=== PATIENT | male | born 1975 | race American Indian/Alaskan Native ===

== ENCOUNTER 2016-11-23 20:35 | Emergency (ER) | payer SELFPAY ==
[2016-11-23] MEDS ORDERED: TYLENOL PO ONE (20:59)
[2016-11-23 21:10] LABS: Hematocrit 46.3 % (35.5-45.6); Hemoglobin 15.6 gm/dl (11.8-15.2); Mean Corpuscular HGB Conc 34 % (32-34); Mean Corpuscular Hemoglobin 29 pg (28-32); Mean Corpuscular Volume 86 fl (84-94); Platelet Count 247 K/mm3 (140-440); Red Blood Count 5.35 M/mm3 (3.65-5.03); Red Cell Distribution Width 13.7 % (13.2-15.2)
[2016-11-23 21:23] LABS: Anion Gap 19 mmol/L; BUN/Creatinine Ratio 10; Blood Urea Nitrogen 11 mg/dL (9-20); Calcium 8.9 mg/dL (8.4-10.2); Carbon Dioxide 26 mmol/L (22-30); Chloride 92.9 mmol/L (98-107); Glucose 138 mg/dL (75-100); Potassium 3.9 mmol/L (3.6-5.0); Sodium 134 mmol/L (137-145)
[2016-11-24 02:43] LABS: Bilirubin,Urine NEG (Negative); Blood,Urine NEG (Negative); Ketones,Urine NEG (Negative); Leukocyte Esterase,Urine SM (Negative); Mucus,Urine 1+ /HPF; Nitrite,Urine NEG (Negative); Protein,Urine <15 mg/dL mg/dL (Negative); Urobilinogen,Urine < 2.0 mg/dL (<2.0)
--- NOTE | 2016-11-24 02:50 | Emergency Department Report ---
- General Chief Complaint: Fever Stated Complaint: FEVER Time Seen by Provider: 11/24/16 02:48 Source: patient, family Mode of arrival: Ambulatory Limitations: No Limitations - History of Present Illness Initial Comments: Patient reports that he has flulike symptoms. He said he woke up and having sweats, sore throat lower back pain, headache. Denies any nausea vomiting or diarrhea. Denies any abdominal pain. Denies any urinary burning frequency or urgency. Reported fever and chills. Pain is 310 to head and throat. Denies any Gen. in. Denies any contact with anyone with similar symptoms. No over-the -counter medication taken prior to coming to the emergency room. Denies any medical or surgical history. Denies any cough or shortness of breath. Denies any chest pain, nasal congestion or runny nose. MD Complaint: fever, sore throat, other (Headache) -: This morning Severity: mild Severity scale (0 -10): 3 Quality: aching Improves With: rest Worsens With: other (eating) Context: other (none known) Associated Symptoms: fever, chills, myalgias, diaphoresis, headache, sore throat. denies: rhinorrhea, nasal congestion, stiff neck, cough, chest pain, shortness of breath, abdominal pain, nausea, vomiting, diarrhea, dysuria, rash, confusion, weight loss, epistaxis, hoarseness, ear pain Treatments Prior to Arrival: Ibuprofen - Related Data Previous Rx's Medication Instructions Recorded Last Taken Type Cyclobenzaprine [Flexeril 10mg] 10 mg PO Q8H PRN #21 tablet 03/07/14 Unknown Rx HYDROcodone/APAP 10-325 [[place] 1 each PO Q6HR PRN #20 tablet 03/07/14 Unknown Rx 10-325 mg TAB] HYDROcodone/APAP 5-325 [[place] 1 each PO Q6HR PRN #12 tablet 11/25/14 Unknown Rx 5/325] Ibuprofen [Motrin 800 MG tab] 800 mg PO Q8HR PRN #30 tablet 11/25/14 Unknown Rx Levofloxacin [Levaquin TAB] 750 mg PO QDAY #10 tablet 11/25/14 Unknown Rx Amoxicillin/K Clav Tab [Augmentin 1 tab PO Q12HR #20 tab 11/24/16 Unknown Rx 875 mg] Ibuprofen [Motrin] 800 mg PO Q8HR PRN #15 tablet 11/24/16 Unknown Rx Allergies Allergy/AdvReac Type Severity Reaction Status Date / Time No Known Allergies Allergy Unverified 03/07/14 00:03 ED Review of Systems ROS: Stated complaint: FEVER Other details as noted in HPI Comment: All other systems reviewed and negative Constitutional: chills, fever ENT: throat pain. denies: congestion Respiratory: no symptoms reported Cardiovascular: denies: chest pain, palpitations, dyspnea on exertion, edema, syncope, paroxysmal nocturnal dyspnea Gastrointestinal: denies: abdominal pain, nausea, vomiting, diarrhea Genitourinary: denies: urgency, dysuria, frequency, hematuria, discharge, testicular pain, testicular mass Musculoskeletal: back pain, myalgia. denies: joint swelling, arthralgia Skin: denies: rash Neurological: headache. denies: weakness, numbness, paresthesias, confusion, abnormal gait, vertigo ED Past Medical Hx - Past Medical History Previous Medical History?: No - Surgical History Past Surgical History?: No - Family History Family history: no significant - Social History Smoking Status: Never Smoker Substance Use Type: Alcohol Other Social History: Single - Medications Home Medications: Home Medications Medication Instructions Recorded Confirmed Last Taken Type Cyclobenzaprine [Flexeril 10mg] 10 mg PO Q8H PRN #21 tablet 03/07/14 Unknown Rx HYDROcodone/APAP 10-325 [[place] 1 each PO Q6HR PRN #20 tablet 03/07/14 Unknown Rx 10-325 mg TAB] HYDROcodone/APAP 5-325 [[place] 1 each PO Q6HR PRN #12 tablet 11/25/14 Unknown Rx 5/325] Ibuprofen [Motrin 800 MG tab] 800 mg PO Q8HR PRN #30 tablet 11/25/14 Unknown Rx Levofloxacin [Levaquin TAB] 750 mg PO QDAY #10 tablet 11/25/14 Unknown Rx Amoxicillin/K Clav Tab [Augmentin 1 tab PO Q12HR #20 tab 11/24/16 Unknown Rx 875 mg] Ibuprofen [Motrin] 800 mg PO Q8HR PRN #15 tablet 11/24/16 Unknown Rx ED Physical Exam - General Limitations: No Limitations General appearance: alert, in no apparent distress - Head Head exam: Present: atraumatic, normocephalic, normal inspection - Eye Eye exam: Present: normal appearance, PERRL, EOMI Pupils: Present: normal accommodation - ENT ENT exam: Present: mucous membranes moist, TM's normal bilaterally, normal external ear exam. Absent: normal exam, normal orophraynx - Expanded ENT Exam Expanded Ear exam: Present: normal external inspection Mouth exam: Present: normal external inspection, tongue normal. Absent: drooling, trismus, muffled voice, tongue elevation, laceration Teeth exam: Present: normal inspection Throat exam: Positive: tonsillar erythema, tonsillomegaly, tonsillar exudate, other (positive pharyngeal erythema). Negative: normal inspection, R peritonsillar mass, L peritonsillar mass - Neck Neck exam: Present: normal inspection, full ROM, lymphadenopathy. Absent: tenderness, meningismus, other (C-spine tenderness) - Respiratory Respiratory exam: Present: normal lung sounds bilaterally. Absent: respiratory distress, wheezes, rales, rhonchi, stridor, chest wall tenderness, accessory muscle use, decreased breath sounds, prolonged expiratory - Cardiovascular Cardiovascular Exam: Present: normal rhythm, tachycardia, normal heart sounds. Absent: systolic murmur, diastolic murmur - GI/Abdominal GI/Abdominal exam: Present: soft, normal bowel sounds. Absent: distended, tenderness, guarding, rebound, rigid, organomegaly, mass, bruit, pulsatile mass , hernia - Extremities Exam Extremities exam: Present: normal inspection, full ROM, normal capillary refill , other (no clubbing, cyanosis or edema to extremities. +2 pulses to extremities. No neurovascular compromise). Absent: tenderness, pedal edema, joint swelling, calf tenderness - Back Exam Back exam: Present: normal inspection, full ROM, other (no vertebral or paraspinal tenderness. Negative SLR bilaterally and negative saddle anesthesia) . Absent: tenderness, CVA tenderness (R), CVA tenderness (L), muscle spasm, paraspinal tenderness, vertebral tenderness, rash noted - Neurological Exam Neurological exam: Present: alert, oriented X3, normal gait, reflexes normal, other (no focal neurological deficit). Absent: motor sensory deficit - Psychiatric Psychiatric exam: Present: normal affect, normal mood - Skin Skin exam: Present: warm, dry, intact, normal color. Absent: rash ED Course Vital Signs 11/23/16 11/23/16 11/24/16 20:44 21:02 02:45 Temperature 100.3 F H 100.2 F H Pulse Rate 105 H 91 H Respiratory 20 18 18 Rate Blood Pressure 153/73 Blood Pressure 110/61 [Right] O2 Sat by Pulse 100 99 Oximetry - Reevaluation(s) Reevaluation #1: 11/24/16 02:57 negative influenza and positive strep. Pen vk 500 mg , tylenol 650 mg in triage and motrin 800 mg in ed. Patient tolerating oral liquids. Deltasone 60 mg po and Zofran 8 mg ODT. Reevaluation #2: 11/24/16 03:48 Patient orally challenge in emergency room and is able to tolerate 4 cups of juice without any focal disease. ED Medical Decision Making - Lab Data Result diagrams: 11/23/16 20:49 11/23/16 20:49 Lab Results 11/23/16 11/23/16 11/24/16 Range/Units 20:49 20:49 Unknown WBC 13.0 H (4.5-11.0) K/mm3 RBC 5.35 H (3.65-5.03) M/mm3 Hgb 15.6 H (11.8-15.2) gm/dl Hct 46.3 H (35.5-45.6) % MCV 86 (84-94) fl MCH 29 (28-32) pg MCHC 34 (32-34) % RDW 13.7 (13.2-15.2) % Plt Count 247 (140-440) K/mm3 Sodium 134 L (137-145) mmol/L Potassium 3.9 (3.6-5.0) mmol/L Chloride 92.9 L (98-107) mmol/L Carbon Dioxide 26 (22-30) mmol/L Anion Gap 19 mmol/L BUN 11 (9-20) mg/dL Creatinine 1.1 (0.8-1.5) mg/dL Estimated GFR > 60 ml/min BUN/Creatinine Ratio 10 % Glucose 138 H (75-100) mg/dL Calcium 8.9 (8.4-10.2) mg/dL Urine Color Yellow (Yellow) Urine Turbidity Clear (Clear) Urine pH 5.0 (5.0-7.0) Ur Specific [place] 1.027 (1.003-1.030) Urine Protein <15 mg/dl (Negative) mg/dL Urine Glucose (UA) 50 (Negative) mg/dL Urine Ketones Neg (Negative) mg/dL Urine Blood Neg (Negative) Urine Nitrite Neg (Negative) Urine Bilirubin Neg (Negative) Urine Urobilinogen < 2.0 (<2.0) mg/dL Ur Leukocyte Esterase Sm (Negative) Urine WBC (Auto) 7.0 H (0.0-6.0) /HPF Urine RBC (Auto) 1.0 (0.0-6.0) /HPF U Epithel Cells (Auto) 1.0 (0-13.0) /HPF Urine Mucus 1+ /HPF Strep positive Influenza and be negative - Medical Decision Making ED course: Seen here complaining of flulike symptoms and laboratory results with CBC mild elevation in white blood cell and hemoconcentrated with elevation in H&H. BMP showed patient with sodium and chloride mildly decreased. Urinalysis glucose of 50, small leukocyte Estrace and white blood count of 7. Strep test is positive and influenza A and B-. Patient was orally challenged in emergency room with by mouth liquids which she tolerated well. He was given penicillin 500 mg by mouth, Zofran 8 mg ODT, Deltasone 60 mg by mouth in emergency room. Physical findings for enlarged red tonsils with pharyngeal erythema without exudate, lymphedenopathy anterior Cervical chain, low-grade fever, headache and elevated heart rate. I discussed the patient his diagnosis , laboratory findings and treatment plan. Patient with acute cystitis, strep pharyngitis, glucosuria, fever in adults, myalgia and leukocytosis. I also discussed the patient that he has some glucose in his urine and when he is better he's been a need to follow-up with his primary care physician and if he does not have one he can follow-up at [facility] for recheck on blood glucose. Patient discharged home a prescription for Augmentin which will cover his urinary tract infection and strep throat. Motrin for fever and sore throat. I encouraged him that he needs to increase his fluid intake and also drink tiny of Gatorade to replete his sodium. Critical care attestation.: If time is entered above; I have spent that time in minutes in the direct care of this critically ill patient, excluding procedure time. ED Disposition Clinical Impression: Strep throat, Elevated serum glucose with glucosuria, Fever in adult, UTI ( urinary tract infection) with pyuria, Hyponatremia Leukocytosis, unspecified Qualifiers: Leukocytosis type: unspecified Qualified Code(s): D72.829 - Elevated white blood cell count, unspecified Headache Qualifiers: Headache type: unspecified Headache chronicity pattern: acute headache Intractability: not intractable Qualified Code(s): R51 - Headache Disposition: DC-01 TO HOME OR SELFCARE Is pt being admited?: No Does the pt Need Aspirin: No Condition: Stable Instructions: Strep Throat (ED), Musculoskeletal Pain (ED), Fever in Adults (ED ), Hyponatremia (ED), Urinary Tract Infection in Men (ED), Acute Headache (ED) Additional Instructions: You glucose and U urine and you'll have to have repeat urinalysis when you are better. Follow-up with your primary care physician in 2-3 days and if you do not have one he can follow-up at [facility] antibiotic will cover strep throat and urinary tract infection Gargle warm salt water Please avoid hot liquids and spicy food as this will irritate your throat Please increase her fluid intake to prevent from getting dehydrated. You can take Motrin for sore throat and fever. Prescriptions: Amoxicillin/K Clav Tab [Augmentin 875 mg] 1 tab PO Q12HR #20 tab Ibuprofen [Motrin] 800 mg PO Q8HR PRN #15 tablet PRN Reason: SORE THROAT AND FEVER Referrals: PRIMARY CARE, [Primary Care Provider] - 2-3 Days [facility] [Outside] - 2-3 Days Forms: Accompanied Note, Work/School Release Form(ED)
[2016-11-24] MEDS ORDERED: VEETIDS PO ONE (02:56)
[2016-11-24] MEDS ORDERED: MOTRIN PO ONE (02:56)
[2016-11-24] MEDS ORDERED: ZOFRAN ODT PO ONE (02:57)
[2016-11-24] MEDS ORDERED: DELTASONE PO ONE (03:18)
[2016-11-24 11:36] VITALS: BP 110/61
== END 2016-11-24 04:16 | disposition home or self-care (01) ==
LOC: ED 20:35
DX: N39.0 Urinary tract infection, site not specified (principal); D72.829 Elevated white blood cell count, unspecified; E87.1 Hypo-osmolality and hyponatremia; J02.9 Acute pharyngitis, unspecified; R81 Glycosuria; R73.9 Hyperglycemia, unspecified; R51 Headache
CPT/HCPCS: 36415; 80048; 81001; 85027; 87086; 87400; 87430; 99283; J7512; Q0162